=== PATIENT | female | born 1960 | race Caucasian/White ===

== ENCOUNTER 2021-01-20 11:11 | Inpatient (IN) | payer OTHER ==
[2021-01-20] MEDS ORDERED: Cefepime 2 GM VIAL ONE (13:28)
[2021-01-20 13:53] LABS: #Basophils 0.2 10x3/uL (0.0-0.2); #Eosinphils 0.3 10x3/uL (0.0-0.5); #Monocytes 0.8 10x3/uL (0.0-1.1); #Neutrophils 3.1 10x3/uL (1.5-8.4); %Basophils 1.9 % (0.0-2.0); %Eosinophils 3.7 % (0.0-6.0); %Lymphocytes 45.3 % (18.0-47.0); %Monocytes 10.2 % (0.0-10.0); %Neutrophils 38.4 % (40.0-75.0); Hemoglobin 11.4 g/dL (12.0-15.5); Mean Corpuscular HGB CONC 33.5 g/dL (32.0-36.0); Mean Corpuscular Volume 95.5 fl (81.6-98.3); Mean Platelet Volume 10.2 fl (7.4-10.4); Platelet Count 270 10x3/uL (150-450); RBC Distribution Width 16.5 % (11.5-14.5); Red Blood Cell (RBC) Count 3.56 10x6/uL (3.90-5.03)
[2021-01-20 14:06] LABS: ALT (SGPT) 50 U/L (8-55); AST (SGOT) 79 U/L (5-34); Albumin 3.9 g/dL (3.4-4.8); Alkaline Phosphatase 87 U/L (40-110); Anion Gap 19 mmol/L (10-20); BUN (Urea Nitrogen) 9 mg/dL (9.8-20.1); Bilirubin, Total 0.4 mg/dL (0.2-1.2); Calc. Creatinine Clearance 0 mL/min (70-130); Calcium 9.1 mg/dL (7.8-10.44); Carbon Dioxide 24 mmol/L (23-31); Chloride 100 mmol/L (98-107); Globulin 3.4 g/dL (2.4-3.5); Glucose 80 mg/dL (80-115); Potassium 4.1 mmol/L (3.5-5.1); Protein, Total 7.3 g/dL (5.8-8.1); Sodium 139 mmol/L (136-145)
[2021-01-20] MEDS ORDERED: Ondansetron PF 4 MG/2 ML Vial IVP PRN (14:34)
[2021-01-20] MEDS ORDERED: Cefepime 1 GM in Sodium Chloride 0.9% 100 ML IVPB SCH (16:00)
[2021-01-20 16:29] LABS: Lactic Acid 1.7 mmol/L (0.5-2.2)
[2021-01-20 17:02] VITALS: BMI 22.2
[2021-01-20] MEDS: Nicotine 21 MG PATCH TD SCH (19:16)
[2021-01-20] MEDS: Cefepime 1 GM in Sodium Chloride 0.9% 100 ML IVPB SCH (19:16)
[2021-01-20] MEDS: Lactated Ringer's 1,000 ML IV SCH (20:12)
[2021-01-20] MEDS: Gabapentin 300 MG CAP PO SCH (20:14)
[2021-01-20] MEDS: Acetaminophen 325 MG TAB PO PRN ×2 (20:14→23:50)
[2021-01-20] MEDS: Lorazepam 0.5 MG TAB PO PRN (23:50)
[2021-01-21] MEDS ORDERED: Vancomycin 1.5 GRAM/300 ML BAG 1.5 GM in Premix Bag 1 BAG IVPB SCH ×2 (01:00→13:00)
[2021-01-21 01:53] LABS: SARS-CoV-2 PCR by NAA Not Detected (NotDetected)
[2021-01-21 04:10] LABS: Lactic Acid 1.2 mmol/L (0.5-2.2)
[2021-01-21 04:19] LABS: Anion Gap 12 mmol/L (10-20); BUN (Urea Nitrogen) 12 mg/dL (9.8-20.1); Calc. Creatinine Clearance 71 mL/min (70-130); Calcium 8.5 mg/dL (7.8-10.44); Carbon Dioxide 26 mmol/L (23-31); Chloride 103 mmol/L (98-107); Glucose 99 mg/dL (80-115); Potassium 3.7 mmol/L (3.5-5.1); Sodium 137 mmol/L (136-145)
[2021-01-21 04:42] LABS: #Basophils 0.1 10x3/uL (0.0-0.2); #Eosinphils 0.2 10x3/uL (0.0-0.5); #Neutrophils 3.9 10x3/uL (1.5-8.4); %Basophils 1.5 % (0.0-2.0); %Monocytes 13.8 % (0.0-10.0); %Neutrophils 52.4 % (40.0-75.0); Hemoglobin 10.3 g/dL (12.0-15.5); Mean Corpuscular HGB CONC 32.5 g/dL (32.0-36.0); Mean Corpuscular Hemoglobin 31.7 pg (27.0-33.0); Mean Corpuscular Volume 97.5 fl (81.6-98.3); Mean Platelet Volume 10.8 fl (7.4-10.4); Platelet Count 231 10x3/uL (150-450); RBC Distribution Width 16.7 % (11.5-14.5); Red Blood Cell (RBC) Count 3.25 10x6/uL (3.90-5.03); White Blood Cell (WBC) Count 7.4 10x3/uL (3.5-10.5)
[2021-01-21] MEDS: Cefepime 1 GM in Sodium Chloride 0.9% 100 ML IVPB SCH ×2 (06:16→20:35)
[2021-01-21] MEDS: Gabapentin 300 MG CAP PO SCH ×2 (09:07→20:33)
[2021-01-21] MEDS: Thiamine 100 MG TAB PO SCH (09:09)
[2021-01-21] MEDS: Folic Acid 1 MG TAB PO SCH (09:09)
[2021-01-21] MEDS: Multivit, Therapeutic 1 TAB PO SCH (09:09)
[2021-01-21] MEDS: Enoxaparin Sodium 40 MG/0.4 ML SYRINGE SC SCH (09:09)
[2021-01-21] MEDS ORDERED: Neomycin-Polymyxin 1 ML AMP ONE (12:53)
[2021-01-21] MEDS ORDERED: Bupivacaine PF 0.5% 30 ML VIAL ONE (12:53)
[2021-01-21] MEDS ORDERED: Ondansetron PF 4 MG/2 ML Vial ONE (13:03)
[2021-01-21] MEDS ORDERED: Lidocaine 1% PF 5 ML VIAL ONE (13:03)
[2021-01-21] MEDS ORDERED: PROPOFOL 20 ML ONE (13:03)
[2021-01-21] MEDS ORDERED: Midazolam HCl 2 mg/2 ml Vial ONE (13:03)
[2021-01-21] MEDS ORDERED: Dexamethasone 20 MG/5 ML VIAL ONE (13:03)
[2021-01-21] MEDS ORDERED: Fentanyl 100 MCG/2 ML VIAL ONE (13:03)
[2021-01-21] MEDS: Lactated Ringer's 1,000 ML IV SCH ×2 (14:54→20:32)
[2021-01-21] MEDS: Nicotine 21 MG PATCH TD SCH (16:12)
[2021-01-21] MEDS: Acetaminophen 325 MG TAB PO PRN ×2 (16:12→20:34)
[2021-01-21] MEDS ORDERED: Sodium Chloride 0.9% 100 ML ONE (20:27)
[2021-01-21] MEDS: Lorazepam 0.5 MG TAB PO PRN (23:49)
[2021-01-22] MEDS: traMADol HCl 50 MG TAB PO PRN ×3 (04:59→21:04)
[2021-01-22 06:03] LABS: #Monocytes 0.9 10x3/uL (0.0-1.1); #Neutrophils 5.5 10x3/uL (1.5-8.4); %Basophils 0.5 % (0.0-2.0); %Lymphocytes 17.8 % (18.0-47.0); %Monocytes 11.2 % (0.0-10.0); %Neutrophils 70.1 % (40.0-75.0); Hemoglobin 10.9 g/dL (12.0-15.5); Mean Corpuscular HGB CONC 32.2 g/dL (32.0-36.0); Mean Corpuscular Hemoglobin 32.1 pg (27.0-33.0); Mean Corpuscular Volume 99.7 fl (81.6-98.3); Mean Platelet Volume 10.7 fl (7.4-10.4); Platelet Count 253 10x3/uL (150-450); RBC Distribution Width 16.4 % (11.5-14.5); White Blood Cell (WBC) Count 7.9 10x3/uL (3.5-10.5)
[2021-01-22 06:17] LABS: Anion Gap 13 mmol/L (10-20); BUN (Urea Nitrogen) 16 mg/dL (9.8-20.1); Calc. Creatinine Clearance 79 mL/min (70-130); Calcium 9.2 mg/dL (7.8-10.44); Carbon Dioxide 25 mmol/L (23-31); Chloride 102 mmol/L (98-107); Glucose 124 mg/dL (80-115); Potassium 4.1 mmol/L (3.5-5.1); Sodium 136 mmol/L (136-145)
[2021-01-22] MEDS: Cefepime 1 GM in Sodium Chloride 0.9% 100 ML IVPB SCH ×2 (06:42→18:33)
[2021-01-22] MEDS: Thiamine 100 MG TAB PO SCH (09:53)
[2021-01-22] MEDS: Bupropion 150 MG XL TAB PO SCH (09:53)
[2021-01-22] MEDS: Folic Acid 1 MG TAB PO SCH ×2 (09:54→09:55)
[2021-01-22] MEDS: Atorvastatin Calcium 40 MG TAB PO SCH (09:54)
[2021-01-22] MEDS: Citalopram 20 MG TAB PO SCH (09:54)
[2021-01-22] MEDS: Gabapentin 300 MG CAP PO SCH ×3 (09:54→21:03)
[2021-01-22] MEDS: Multivit, Therapeutic 1 TAB PO SCH (09:55)
[2021-01-22] MEDS: Lisinopril 10 MG TAB PO SCH (09:55)
[2021-01-22] MEDS: Enoxaparin Sodium 40 MG/0.4 ML SYRINGE SC SCH (09:55)
[2021-01-22] MEDS: Aspirin 325 MG TAB PO SCH (09:55)
[2021-01-22] MEDS: Lactated Ringer's 1,000 ML IV SCH ×2 (09:56→21:01)
[2021-01-22] MEDS: Vancomycin HCl 750 MG in Sodium Chloride 0.9% 250 ML 250 ML IVPB SCH (12:35)
[2021-01-22] MEDS: Nicotine 21 MG PATCH TD SCH (15:22)
[2021-01-22] MEDS: Lorazepam 0.5 MG TAB PO PRN (23:45)
[2021-01-23] MEDS: Vancomycin HCl 750 MG in Sodium Chloride 0.9% 250 ML 250 ML IVPB SCH ×2 (00:55→14:11)
[2021-01-23] MEDS: Cefepime 1 GM in Sodium Chloride 0.9% 100 ML IVPB SCH ×2 (06:15→19:13)
[2021-01-23] MEDS: traMADol HCl 50 MG TAB PO PRN ×2 (06:28→20:42)
[2021-01-23] MEDS: Aspirin 325 MG TAB PO SCH (08:58)
[2021-01-23] MEDS: Enoxaparin Sodium 40 MG/0.4 ML SYRINGE SC SCH (08:58)
[2021-01-23] MEDS: Atorvastatin Calcium 40 MG TAB PO SCH (08:58)
[2021-01-23] MEDS: Lisinopril 10 MG TAB PO SCH (08:58)
[2021-01-23] MEDS: Folic Acid 1 MG TAB PO SCH ×2 (08:59→09:00)
[2021-01-23] MEDS: Bupropion 150 MG XL TAB PO SCH (08:59)
[2021-01-23] MEDS: Thiamine 100 MG TAB PO SCH (08:59)
[2021-01-23] MEDS: Citalopram 20 MG TAB PO SCH (08:59)
[2021-01-23] MEDS: Gabapentin 300 MG CAP PO SCH ×3 (08:59→20:41)
[2021-01-23] MEDS: Lactated Ringer's 1,000 ML IV SCH (09:00)
[2021-01-23] MEDS: Multivit, Therapeutic 1 TAB PO SCH (09:00)
[2021-01-23 12:53] LABS: Vancomycin, Trough 9.7 ug/mL
[2021-01-23] MEDS: Nicotine 21 MG PATCH TD SCH (15:45)
[2021-01-24] MEDS: Lactated Ringer's 1,000 ML IV SCH ×2 (00:07→12:46)
[2021-01-24] MEDS: Vancomycin HCl 1 GM in Sodium Chloride 0.9% 250 ML 250 ML IVPB SCH ×2 (00:47→12:46)
[2021-01-24] MEDS: Lorazepam 0.5 MG TAB PO PRN (00:50)
[2021-01-24] MEDS: traMADol HCl 50 MG TAB PO PRN (04:56)
[2021-01-24] MEDS: Gabapentin 300 MG CAP PO SCH (04:57)
[2021-01-24] MEDS: Cefepime 1 GM in Sodium Chloride 0.9% 100 ML IVPB SCH (06:29)
[2021-01-24] MEDS: Lisinopril 10 MG TAB PO SCH (08:50)
[2021-01-24] MEDS: Aspirin 325 MG TAB PO SCH (08:50)
[2021-01-24] MEDS: Multivit, Therapeutic 1 TAB PO SCH (08:50)
[2021-01-24] MEDS: Citalopram 20 MG TAB PO SCH (08:51)
[2021-01-24] MEDS: Thiamine 100 MG TAB PO SCH (08:52)
[2021-01-24] MEDS: Folic Acid 1 MG TAB PO SCH ×2 (08:52)
[2021-01-24] MEDS: Atorvastatin Calcium 40 MG TAB PO SCH (08:52)
[2021-01-24] MEDS: Enoxaparin Sodium 40 MG/0.4 ML SYRINGE SC SCH (08:52)
[2021-01-24] MEDS: Bupropion 150 MG XL TAB PO SCH (08:52)
[2021-01-24 12:21] VITALS: BP 138/81; TEMP 97.9
== END 2021-01-24 13:30 | disposition home or self-care (01) | DRG 505 ==
LOC: CSHERS 11:11 → CSHTELE 14:29
PROVIDERS: ADMIT Internal Medicine; ATTEND Internal Medicine
PROC: 0Y6U0Z3 Detachment at Left 3rd Toe, Low, Open Approach (ICD-10-PCS; principal; 2021-01-21)
DX: M86.172 Other acute osteomyelitis, left ankle and foot (principal); E78.5 Hyperlipidemia, unspecified; I73.9 Peripheral vascular disease, unspecified; I10 Essential (primary) hypertension; B96.5 Pseudomonas (aeruginosa) (mallei) (pseudomallei) as the cause of diseases classified elsewhere; B96.1 Klebsiella pneumoniae [K. pneumoniae] as the cause of diseases classified elsewhere; G62.9 Polyneuropathy, unspecified; L03.032 Cellulitis of left toe; Z86.73 Personal history of transient ischemic attack (TIA), and cerebral infarction without residual deficits; F17.210 Nicotine dependence, cigarettes, uncomplicated
CPT/HCPCS: 36415; 80048; 80053; 80202; 82565; 83605; 84520; 85025; 87040; 87070; 87077; 87186; 87205; 87635; 88305; 88311; 94760; 96365; 96367; J0692; J1100; J1650; J2250; J2405; J2704; J3010; J3370; J3490; J7050; S0020; U0003; U0005

== ENCOUNTER 2022-02-28 10:55 | Outpatient (CLI) | payer OTHER | END 2022-02-28 10:56 | disposition home or self-care (01) | LOC: CSHWCC 10:55 | PROVIDERS: ATTEND Nurse Practitioner Family | DX: S91.302D Unspecified open wound, left foot, subsequent encounter (principal); S91.105D Unspecified open wound of left lesser toe(s) without damage to nail, subsequent encounter | CPT/HCPCS: 99205; G0463 ==

== ENCOUNTER 2022-03-13 10:31 | Outpatient (CLI) | payer OTHER | END 2022-03-13 10:32 | disposition home or self-care (01) | LOC: CSHWCC 10:31 | PROVIDERS: ATTEND Nurse Practitioner Family | DX: S91.302D Unspecified open wound, left foot, subsequent encounter (principal); S91.101D Unspecified open wound of right great toe without damage to nail, subsequent encounter; S91.104D Unspecified open wound of right lesser toe(s) without damage to nail, subsequent encounter | CPT/HCPCS: 99213; G0463 ==

== ENCOUNTER 2022-04-03 13:11 | Outpatient (CLI) | payer OTHER | END 2022-04-03 13:12 | disposition home or self-care (01) | LOC: CSHWCC 13:11 | PROVIDERS: ATTEND Nurse Practitioner Family | DX: S91.302D Unspecified open wound, left foot, subsequent encounter (principal); S91.104D Unspecified open wound of right lesser toe(s) without damage to nail, subsequent encounter ==

== ENCOUNTER 2022-05-16 14:47 | Outpatient (CLI) | payer OTHER | END 2022-05-16 14:48 | disposition home or self-care (01) | LOC: CSHWCC 14:47 | PROVIDERS: ATTEND Preventive Medicine Undersea and Hyperbaric Medicine | DX: S91.302D Unspecified open wound, left foot, subsequent encounter (principal) | CPT/HCPCS: 99212; G0463 ==

== ENCOUNTER 2022-06-26 14:02 | Outpatient (CLI) | payer OTHER | END 2022-06-26 14:03 | disposition home or self-care (01) | LOC: CSHWCC 14:02 | PROVIDERS: ATTEND Preventive Medicine Undersea and Hyperbaric Medicine | DX: S91.302D Unspecified open wound, left foot, subsequent encounter (principal) | CPT/HCPCS: 29445 ==

== ENCOUNTER 2022-07-03 14:19 | Outpatient (CLI) | payer OTHER | END 2022-07-03 14:20 | disposition home or self-care (01) | LOC: CSHWCC 14:19 | PROVIDERS: ATTEND Preventive Medicine Undersea and Hyperbaric Medicine | DX: L98.492 Non-pressure chronic ulcer of skin of other sites with fat layer exposed (principal) | CPT/HCPCS: 97597 ==

== ENCOUNTER 2022-07-10 14:28 | Outpatient (CLI) | payer OTHER | END 2022-07-10 14:29 | disposition home or self-care (01) | LOC: CSHWCC 14:28 | PROVIDERS: ATTEND Nurse Practitioner Family | DX: L98.492 Non-pressure chronic ulcer of skin of other sites with fat layer exposed (principal) | CPT/HCPCS: 29445 ==

== ENCOUNTER 2022-07-17 10:47 | Outpatient (CLI) | payer OTHER | END 2022-07-17 10:48 | disposition home or self-care (01) | LOC: CSHWCC 10:47 | PROVIDERS: ATTEND Nurse Practitioner Family | DX: L98.492 Non-pressure chronic ulcer of skin of other sites with fat layer exposed (principal) ==

== ENCOUNTER 2022-07-24 14:21 | Outpatient (CLI) | payer OTHER | END 2022-07-24 14:22 | disposition home or self-care (01) | LOC: CSHWCC 14:21 | PROVIDERS: ATTEND Nurse Practitioner Family | DX: L98.492 Non-pressure chronic ulcer of skin of other sites with fat layer exposed (principal) | CPT/HCPCS: 29445 ==

== ENCOUNTER 2022-07-31 10:39 | Outpatient (CLI) | payer OTHER | END 2022-07-31 10:40 | disposition home or self-care (01) | LOC: CSHWCC 10:39 | PROVIDERS: ATTEND Nurse Practitioner Family | DX: L98.492 Non-pressure chronic ulcer of skin of other sites with fat layer exposed (principal) | CPT/HCPCS: 29445 ==

== ENCOUNTER 2022-08-08 13:47 | Outpatient (CLI) | payer OTHER | END 2022-08-08 13:48 | disposition home or self-care (01) | LOC: CSHWCC 13:47 | PROVIDERS: ATTEND Nurse Practitioner Family | DX: L98.492 Non-pressure chronic ulcer of skin of other sites with fat layer exposed (principal) | CPT/HCPCS: 29445 ==

== ENCOUNTER 2022-08-15 10:55 | Outpatient (CLI) | payer OTHER | END 2022-08-15 10:56 | disposition home or self-care (01) | LOC: CSHWCC 10:55 | PROVIDERS: ATTEND Nurse Practitioner Family | DX: L98.492 Non-pressure chronic ulcer of skin of other sites with fat layer exposed (principal) | CPT/HCPCS: 29445 ==

== ENCOUNTER 2022-08-29 12:07 | Outpatient (CLI) | payer OTHER | END 2022-08-29 12:08 | disposition home or self-care (01) | LOC: CSHWCC 12:07 | PROVIDERS: ATTEND Nurse Practitioner Family | DX: L98.492 Non-pressure chronic ulcer of skin of other sites with fat layer exposed (principal) ==

== ENCOUNTER 2022-09-06 14:36 | Outpatient (CLI) | payer OTHER | END 2022-09-06 14:37 | disposition home or self-care (01) | LOC: CSHWCC 14:36 | PROVIDERS: ATTEND Nurse Practitioner Family | DX: L98.492 Non-pressure chronic ulcer of skin of other sites with fat layer exposed (principal) | CPT/HCPCS: 29445; 99212; G0463 ==

== ENCOUNTER 2022-09-14 14:39 | Outpatient (CLI) | payer OTHER | END 2022-09-14 14:40 | disposition home or self-care (01) | LOC: CSHWCC 14:39 | PROVIDERS: ATTEND Nurse Practitioner Family | DX: L98.492 Non-pressure chronic ulcer of skin of other sites with fat layer exposed (principal) ==

== ENCOUNTER 2022-10-13 10:30 | Outpatient (CLI) | payer OTHER | END 2022-10-13 10:31 | disposition home or self-care (01) | LOC: CSHWCC 10:30 | PROVIDERS: ATTEND Nurse Practitioner Family | DX: L98.492 Non-pressure chronic ulcer of skin of other sites with fat layer exposed (principal) | CPT/HCPCS: 99213; G0463 ==

== ENCOUNTER 2022-10-26 14:21 | Outpatient (CLI) | payer OTHER | END 2022-10-26 14:22 | disposition home or self-care (01) | LOC: CSHWCC 14:21 | PROVIDERS: ATTEND Nurse Practitioner Family | DX: S91.309D Unspecified open wound, unspecified foot, subsequent encounter (principal) ==

== ENCOUNTER 2022-11-02 15:10 | Outpatient (CLI) | payer OTHER | END 2022-11-02 15:11 | disposition home or self-care (01) | LOC: CSHWCC 15:10 | PROVIDERS: ATTEND Nurse Practitioner Family | DX: S91.309D Unspecified open wound, unspecified foot, subsequent encounter (principal) ==

== ENCOUNTER 2022-11-07 13:48 | Outpatient (CLI) | payer OTHER ==
[~2022-11-07 13:48] MED LIST: Iopamidol 300 61% 100 ML VIAL FS ONE
== END 2022-11-07 13:49 | disposition home or self-care (01) ==
LOC: CSHCT 13:48
PROVIDERS: ATTEND Student in an Organized Health Care Education/Training Program
DX: K11.20 Sialoadenitis, unspecified (principal); C76.0 Malignant neoplasm of head, face and neck; R59.0 Localized enlarged lymph nodes; C77.0 Secondary and unspecified malignant neoplasm of lymph nodes of head, face and neck; E04.1 Nontoxic single thyroid nodule
CPT/HCPCS: 70491; 82565

== ENCOUNTER 2022-11-09 13:47 | Outpatient (CLI) | payer OTHER | END 2022-11-09 13:48 | disposition home or self-care (01) | LOC: CSHWCC 13:47 | PROVIDERS: ATTEND Nurse Practitioner Family | DX: S91.302D Unspecified open wound, left foot, subsequent encounter (principal) ==

== ENCOUNTER 2022-11-20 15:10 | Outpatient (CLI) | payer OTHER | END 2022-11-20 15:11 | disposition home or self-care (01) | LOC: CSHWCC 15:10 | PROVIDERS: ATTEND Nurse Practitioner Family | DX: S91.309D Unspecified open wound, unspecified foot, subsequent encounter (principal) | CPT/HCPCS: 29445 ==

== ENCOUNTER 2022-11-30 14:39 | Outpatient (CLI) | payer OTHER | END 2022-11-30 14:40 | disposition home or self-care (01) | LOC: CSHWCC 14:39 | PROVIDERS: ATTEND Nurse Practitioner Family | DX: S91.102D Unspecified open wound of left great toe without damage to nail, subsequent encounter (principal); L89.893 Pressure ulcer of other site, stage 3 | CPT/HCPCS: 29445; 99213; G0463 ==

== ENCOUNTER 2022-12-08 13:52 | Outpatient (CLI) | payer OTHER | END 2022-12-08 13:53 | disposition home or self-care (01) | LOC: CSHWCC 13:52 | PROVIDERS: ATTEND Nurse Practitioner Family | DX: L89.893 Pressure ulcer of other site, stage 3 (principal); S91.309D Unspecified open wound, unspecified foot, subsequent encounter | CPT/HCPCS: 87070; 87077; 87186; 87205; 99213; G0463 ==

== ENCOUNTER 2022-12-08 15:21 | Outpatient (CLI) | payer OTHER | END 2022-12-08 15:22 | disposition home or self-care (01) | LOC: CSHRAD 15:21 | PROVIDERS: ATTEND Family Medicine | DX: S91.102D Unspecified open wound of left great toe without damage to nail, subsequent encounter (principal) ==